=== PATIENT | male | born 1990 | race Caucasian/White ===

== ENCOUNTER 2017-06-05 00:08 | Emergency (ER) | payer SELFPAY ==
[2017-06-05 02:56] VITALS: BP 152/82
--- NOTE | 2017-06-05 04:53 | ER Document Report ---
ED Dizziness/Weakness - General Chief Complaint: Near Syncope Stated Complaint: CUT ON NECK Time Seen by Provider: 06/05/17 04:51 Mode of Arrival: Ambulatory Information source: Patient Notes: 27 yo normally healthy male got lightheaded with nausea while working at [employer], co worker said he looked pale. He was drunk the night before and accidentally cut his left neck (doesn't remember how) and superglued it together so he wants that checked too. No headache, dizziness, chest pain, shortness of breath, v/d, abdominal pain or fever. TRAVEL OUTSIDE OF THE [place] IN LAST 30 DAYS: No - Related Data Allergies/Adverse Reactions: No Known Allergies Allergy (Unverified 06/05/17 01:05) Past Medical History - General Information source: Patient - Social History Smoking Status: Current Every Day Smoker Frequency of alcohol use: Social - got drunk sat night Drug Abuse: Marijuana Occupation: [employer] Lives with: Alone Family History: Reviewed & Not Pertinent Patient has suicidal ideation: No Patient has homicidal ideation: No - Medical History Medical History: Negative Renal/ Medical History: Denies: Hx Peritoneal Dialysis Surgical Hx: Negative Review of Systems - Review of Systems Constitutional: No symptoms reported EENT: No symptoms reported Cardiovascular: No symptoms reported Respiratory: No symptoms reported Gastrointestinal: No symptoms reported Genitourinary: No symptoms reported Male Genitourinary: No symptoms reported Musculoskeletal: No symptoms reported Skin: See HPI Hematologic/Lymphatic: No symptoms reported Neurological/Psychological: See HPI Physical Exam - Vital signs Vitals: Temp Pulse Resp BP Pulse Ox 99.3 F 77 18 148/86 H 100 06/05/17 01:05 06/05/17 01:05 06/05/17 01:05 06/05/17 01:05 06/05/17 01:05 Interpretation: Normal - General General appearance: Appears well, Alert - HEENT Head: Normocephalic, Atraumatic Eyes: Normal Pupils: PERRL Neck: Supple Notes: 2 cm partial thickness cut base of left neck with super glue over most of it, no erythema - Respiratory Respiratory status: No respiratory distress Chest status: Nontender Breath sounds: Normal Chest palpation: Normal - Cardiovascular Rhythm: Regular Heart sounds: Normal auscultation Murmur: No - Abdominal Inspection: Normal Distension: No distension Bowel sounds: Normal Tenderness: Nontender Organomegaly: No organomegaly - Back Back: Normal, Nontender - Extremities General upper extremity: Normal inspection, Nontender, Normal color, Normal ROM , Normal temperature General lower extremity: Normal inspection, Nontender, Normal color, Normal ROM , Normal temperature, Normal weight bearing. No: Siva's sign - Neurological Neuro grossly intact: Yes Cognition: Normal Orientation: AAOx4 Bianca Coma Scale Eye Opening: Spontaneous [place] Coma Scale Verbal: Oriented [place] Coma Scale Motor: Obeys Commands [place] Coma Scale Total: 15 Speech: Normal Motor strength normal: LUE, RUE, LLE, RLE Sensory: Normal - Psychological Associated symptoms: Normal affect, Normal mood - Skin Skin Temperature: Warm Skin Moisture: Dry Skin Color: Normal Course - Vital Signs Vital signs: Temp Pulse Resp BP Pulse Ox 99.3 F 74 18 152/82 H 100 06/05/17 01:05 06/05/17 02:54 06/05/17 02:54 06/05/17 02:54 06/05/17 02:54 - EKG Interpretation by Ia EKG shows normal: Sinus rhythm Rate: Normal Rhythm: NSR - evaluated by dr velasquez Discharge - Discharge Clinical Impression: episode or presyncope, Cut of neck Condition: Good Disposition: HOME, SELF-CARE Instructions: Dizziness ([facility]), Near Syncopal Episode ([facility]), Non-Sutured Laceration ([facility]) Additional Instructions: bacitracin to neck wound drink plenty of fluids to er any concerns accucheck was normal at 81 copy of ekg given to you Please complete the patient satisfaction survey if you get one, and return it.. If you do not receive a survey, then you can go to the [facility] website, [email or web address] and place your comments about your very good care. Thank you very much. It was a pleasure being your medical provider today. Forms: Return to Work
--- NOTE | 2017-06-05 14:35 | EKG REPORT ---
SEVERITY:- NORMAL ECG - SINUS RHYTHM : Confirmed by: Sunni Leyva MD 05-Jun-2017 14:35:21
== END 2017-06-05 05:14 | disposition home or self-care (01) ==
LOC: ER 00:08
DX: R55 Syncope and collapse (principal); S11.81XA Laceration without foreign body of other specified part of neck, initial encounter; X58.XXXA Exposure to other specified factors, initial encounter; F17.200 Nicotine dependence, unspecified, uncomplicated
CPT/HCPCS: 82962; 93005; 93010; 99284

== ENCOUNTER 2019-10-22 21:04 | Emergency (ER) | payer SELFPAY ==
[2019-10-22 21:24] VITALS: BP 156/78
== END 2019-10-23 03:53 | disposition left against medical advice (07) ==
LOC: ER 21:04
DX: Z53.21 Procedure and treatment not carried out due to patient leaving prior to being seen by health care provider (principal)

== ENCOUNTER → 2019-11-27 | Outpatient (CLI) | payer MEDICAID ==
[2019-11-27 16:17] LABS: A TYPE INFLUENZA AG NEGATIVE (NEGATIVE); B INFLUENZA AG NEGATIVE (NEGATIVE)
[2019-11-28 12:52] VITALS: BP 112/76
--- NOTE | 2019-11-28 12:52 | ER RDC ASSESSMENT REPORT ---
Intake - In the Last 14 days Have you traveled outside [place]?: No Have you been in close contact with someone CONFIRMED: No Worked in Healthcare?: No - Symptoms Subjective Fever([place] feverish): Yes Chills: Yes Muscule Aches: No Runny Nose: Yes Sore Throat: Yes Cough (New or worsening chronic cough): Yes --How many day(s)?: 30 days Shortness of breath: No Nausea or Vomiting: Yes Headache: No Abdominal Pain: No Diarrhea(3 or more loose stools in last 24 hours): No - Do you have any of the following Chronic lung disease: Asthma or emphysema or COPD: No Cystic Fibrosis: No Diabetes: No High Blood Pressure: No Cardiovascular Disease: No Chronic Kidney Disease: No Chronic Liver Disease: No Chronic blood disorder like Sickle Cell Disease: No Weak immune system due to disease or medication: No Neurologic condition that limits movement: No Developmental delay - Moderate to Severe: No Recent (within past 2 weeks) or current : No Morbid Obesity (>100 pounds over ideal weight): No - Objective Temperature: 99.5 F Pulse Rate: 67 Respiratory Rate: 14 Blood Pressure: 112/76 O2 Sat by Pulse Oximetry: 98 Objective: Given above, testing performed: Rapid flu A/B, Rapid Strep- both negative If Testing Performed: Test Specimen Type Sent to Throat culture sent to [facility], COVID-19 sent to [facility] - General Chief Complaint: Cough Stated Complaint: Cough, low grade temp Mode of Arrival: Ambulatory Information source: Patient - [facility] Patient complains to provider of: cough Onset: Other - 1 month Onset/Duration: Gradual, Persistent Quality of pain: No pain Associated symptoms: Chills, Fever, Nausea, Rhinnorhea, Sore throat Exacerbated by: Denies Relieved by: Sitting, Remaining still, Other Similar symptoms previously: No Recently seen / treated by doctor: No - Related Data Allergies/Adverse Reactions: No Known Allergies Allergy (Unverified 06/05/17 01:05) Home Medications: mucinex, dayquil Past Medical History - Social History Smoking Status: Current Every Day Smoker Cigarette use (# per day): Yes - 5-15 Chew tobacco use (# tins/day): No Smoking Education Provided: Yes Frequency of alcohol use: Occasional Drug Abuse: None Occupation: plumbing Family History: Reviewed & Not Pertinent - Medical History Medical History: Negative - Past Medical History Cardiac Medical History: Reports: None Pulmonary Medical History: Reports: None Neurological Medical History: Reports: None Endocrine Medical History: Reports: None Renal/ Medical History: Reports: None. Denies: Hx Peritoneal Dialysis Malignancy Medical History: Reports None GI Medical History: Reports: None Musculoskeletal Medical History: Reports None Skin Medical History: Reports None Psychiatric Medical History: Reports: None Traumatic Medical History: Reports: None Infectious Medical History: Reports: None Past Surgical History: Reports: None Physical Exam - Vital signs Interpretation: Normal - General General appearance: Appears well, Alert In distress: None - HEENT Eyes: Normal Conjunctiva: Normal Pupils: PERRL Sinus: Normal Nasal: Normal, Clear rhinorrhea Mouth/Lips: Normal Mucous membranes: Normal Neck: Normal - Respiratory Respiratory status: No respiratory distress. No: Respiratory distress, Agonal respirations, Cyanosis, Depressed respirations, Labored, Pursed lip breathing, Retractions, Tachypnea, Tripod position, Other Chest status: Nontender. No: Tender, Chest mass, Ecchymosis, No pleuritic chest pain, Pain on movement, Pain with cough, Pain with deep breathing, Wounds, Accessory muscle use, Prolonged expirations, Splinting, Other Breath sounds: Normal, Nonproductive cough. No: Decreased air movement, Productive cough, Rales, Rhonchi, Stridor, Wheezing, Other Chest palpation: Normal. No: Flail segment, Man frothy sputum, Purulent sputum, Subcutaneous emphysema, Sucking chest wound, Tender, Ecchymosis, Wounds, Other - Cardiovascular Rhythm: Regular. No: Irregularly irregular, Extrasystoles, Tachycardia, Bradycardia, Other Heart sounds: Normal auscultation Murmur: No Friction rub: No Gallop: None auscultated Pulses: Normal: Radial Normal capillary refill: Yes - Abdominal Inspection: Normal Distension: No distension Bowel sounds: Normal Tenderness: Nontender - Neurological Neuro grossly intact: Yes Cognition: Normal Orientation: AAOx4 Bianca Coma Scale Eye Opening: Spontaneous [place] Coma Scale Verbal: Oriented [place] Coma Scale Motor: Obeys Commands [place] Coma Scale Total: 15 Speech: Normal - Psychological Associated symptoms: Normal affect, Normal mood - Skin Skin Temperature: Warm Skin Moisture: Dry Skin Color: Normal, Man Skin Turgor: Elastic Diagnostic Results Laboratory Results: 11/27/19 14:59 Throat Throat Culture - Final Group A Beta Streptococcus Normal Lauren Influenza A (Rapid) NEGATIVE (NEGATIVE) 11/27/19 15:06 Influenza B (Rapid) NEGATIVE (NEGATIVE) 11/27/19 15:06 Group A Strep Rapid NEGATIVE (NEGATIVE) 11/27/19 15:06 Patient Education/Counseling Counseling/Education: SRINATH educaation provided Guidance for worsening S/SX: Follow-up with PCP, ER with severe SOB/high temps RDC Discharge - Discharge Clinical Impression: Upper respiratory infection with cough and congestion Condition: Good Disposition: Home; Selfcare
== END ==
LOC: RDC 14:46
PROVIDERS: ATTEND Registered Nurse
DX: Z20.828 Contact with and (suspected) exposure to other viral communicable diseases (principal); J06.9 Acute upper respiratory infection, unspecified; R50.9 Fever, unspecified; J02.9 Acute pharyngitis, unspecified; R05 Cough; R11.2 Nausea with vomiting, unspecified; F17.210 Nicotine dependence, cigarettes, uncomplicated
CPT/HCPCS: 87070; 87077; 87635; 87804; 87880

== ENCOUNTER 2020-09-13 11:25 | Emergency (ER) | payer BC, MEDICAID ==
[2020-09-13 11:33] VITALS: BP 136/83
--- NOTE | 2020-09-13 12:26 | ER Document Report ---
ED Neck/Back Problem - General Chief Complaint: Back Pain Stated Complaint: LOW BACK PAIN Time Seen by Provider: 09/13/20 12:26 Primary Care Provider: NAPOLEON,UMA [Primary Care Provider] - Follow up as needed Notes: CHIEF COMPLAINT: Low back injury 3 days ago HPI: 22-year-old male with left lower back injury that occurred 3 days ago at work. 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 No incontinence of urine or bowel. No weakness numbness or tingling in the legs. No perineal numbness. States that he does this about once a year, normally has taken Flexeril and Toradol with good results ROS: See HPI - all other systems were reviewed and are otherwise negative Constitutional: no fever , No incontinence : no dysuria Integumentary: no rash Allergy: no hives Musculoskeletal: no extremity pain or swelling, positive back pain Neurological: no numbness/tingling, no weakness MEDICATIONS: I agree with the patient medications as charted by the RN. ALLERGIES: I agree with the allergies as charted by the RN. PAST MEDICAL HISTORY/PAST SURGICAL HISTORY: Reviewed and agree as charted by RN. SOCIAL HISTORY: Reviewed and agree as charted by RN. FAMILY HISTORY: No significant familial comorbid conditions directly related to patient complaint EXAM: Reviewed vital signs as charted by RN. CONSTITUTIONAL: Alert and oriented and responds appropriately to questions. Well-appearing; well-nourished HEAD: Normocephalic; atraumatic EYES: Conjunctivae clear, sclerae non-icteric ENT: normal nose; no rhinorrhea; moist mucous membranes NECK: Supple without meningismus CARD: symmetric distal pulses RESP: Normal chest excursion without splinting or tachypnea ABD/GI: Normal bowel sounds; non-distended; soft, non-tender, no rebound, no guarding; no palpable organomegaly or masses. BACK: The back appears normal and is non-tender to palpation directly over the lumbar spine. There is mild left lateral lumbar muscular tenderness on palpation, there is no CVA tenderness EXT: Normal ROM in all joints; non-tender to palpation; no cyanosis, no effusion s, no edema SKIN: Normal color for age and race; warm; dry; good turgor; no acute lesions noted NEURO: Moves all extremities equally; Motor and sensory function intact. Strength equal 5/5 bilateral lower extremities. Sensation intact and equal bilateral lower extremities. Straight leg raise is negative. No saddle anesthesia on exam. DTRs 2+ intact and equal bilateral lower extremities. PSYCH: The patient's mood and manner are appropriate. Grooming and personal hygiene are appropriate. MDM: 30-year-old male lateral lumbar muscular back pain. No direct tenderness over the spine to suggest fracture or need for imaging today. He is neurologically intact. Low suspicion for cauda equina. Patient has done well on Toradol and Flexeril in the past I will call these medications into the pharmacy for him and refer him to orthopedics for follow-up TRAVEL OUTSIDE OF THE [place] IN LAST 30 DAYS: No - Related Data Allergies/Adverse Reactions: No Known Allergies Allergy (Unverified 06/05/17 01:05) Past Medical History - Social History Smoking Status: Unknown if Ever Smoked Family History: Reviewed & Not Pertinent Renal/ Medical History: Denies: Hx Peritoneal Dialysis Physical Exam - Vital signs Vitals: Temp Pulse Resp BP Pulse Ox 98.5 F 69 18 136/83 H 100 09/13/20 11:31 09/13/20 11:31 09/13/20 11:31 09/13/20 11:31 09/13/20 11:31 Course - Vital Signs Vital signs: Temp Pulse Resp BP Pulse Ox 98.5 F 69 18 136/83 H 100 09/13/20 11:31 09/13/20 11:31 09/13/20 11:31 09/13/20 11:31 09/13/20 11:31 - Laboratory Results Critical Laboratory Results Reviewed: No Critical Results - Radiology Results Critical Radiology Results Reviewed: No Critical Results Discharge - Discharge Clinical Impression: Lower back injury Qualifiers: Encounter type: initial encounter Qualified Code(s): S39.92XA - Unspecified injury of lower back, initial encounter Condition: Stable Disposition: HOME, SELF-CARE Instructions: Muscle Strain ([facility]), Low Back Pain ([facility]) Additional Instructions: 1. Warm heat to the lower back twice daily 2. no heavy lifting for 2-3 days 3. medications as prescribed, no driving on muscle relaxers 4. follow up with orthopedics for further evaluation and treatment as needed for any continuing pain or problems, call for appt. 5. return to the ER for any onset of incontinence of urine, fever > 101 or wors ening condition Prescriptions: Ketorolac Tromethamine [Toradol 10 mg Tablet] 10 mg PO Q6HP PRN #20 tablet PRN Reason: Cyclobenzaprine HCl [Flexeril 10 mg Tablet] 10 mg PO TIDP PRN #15 tab PRN Reason: Referrals: JOHNNY TAVERA JR, DO [ACTIVE PROVISIONAL STAFF] - Follow up as needed
== END 2020-09-13 13:12 | disposition home or self-care (01) ==
LOC: ER 11:25
DX: S39.92XA Unspecified injury of lower back, initial encounter (principal); X50.9XXA Other and unspecified overexertion or strenuous movements or postures, initial encounter; Y99.0 Civilian activity done for income or pay
CPT/HCPCS: 99283

== ENCOUNTER 2020-09-26 09:33 | Emergency (ER) | payer BC, MEDICAID ==
[2020-09-26 09:38] VITALS: BP 129/85
[2020-09-26 11:34] LABS: APPEARANCE,URINE CLEAR; BILIRUBIN,URINE NEGATIVE (NEGATIVE); COLOR,URINE YELLOW; GLUCOSE, URINE NEGATIVE (NEGATIVE); KETONES,URINE NEGATIVE (NEGATIVE); LEUKOCYTE ESTERASE,URINE NEGATIVE (NEGATIVE); NITRITE,URINE NEGATIVE (NEGATIVE); PROTEIN,URINE NEGATIVE (NEGATIVE); URINE SPECIFIC GRAVITY 1.029; UROBILINOGEN,URINE NEGATIVE mg/dL (<2.0)
[2020-09-26 11:56] LABS: URINE AMPHETAMINES SCREEN NEGATIVE; URINE BARBITURATES SCREEN NEGATIVE; URINE BENZODIAZEPINES SCREEN NEGATIVE; URINE COCAINE SCREEN NEGATIVE; URINE MARIJUANA (THC) SCREEN UNCONFIRMED POSITIVE; URINE METHADONE SCREEN NEGATIVE; URINE PHENCYCLIDINE SCREEN NEGATIVE
--- NOTE | 2020-09-26 12:02 | RADIOLOGY REPORT (SQ) ---
EXAM DESCRIPTION: CT LUMBAR SPINE WITHOUT IMAGES COMPLETED DATE/TIME: 09/26/2020 11:33 am REASON FOR STUDY: left low back pain COMPARISON: None. TECHNIQUE: Axial images acquired through the lumbar spine without intravenous contrast. Images revi ewed with lung, soft tissue and bone windows. Reconstructed coronal and sagittal MPR images reviewed . All images stored on PACS. All CT scanners at this facility use dose modulation, iterative reconstruction, and/or weight based d osing when appropriate to reduce radiation dose to as low as reasonably achievable (ALARA). [facility]: Dose Right [facility]: CareDose [facility]: Dose Right [facility]: Teradose 4D [facility]: Teachable RADIATION DOSE: mGy. LIMITATIONS: None. FINDINGS: SEGMENTATION: Normal. No transitional anatomy. ALIGNMENT: Normal. VERTEBRAL BODIES: No fractures. No dislocation. No acute findings. DISCS: Probable posterior disc bulges at L3-L4 and L4-L5. Study limited by lack of intrathecal contr ast. PEDICLES, TRANSVERSE PROCESSES: No fractures. No dislocation. No acute findings. FACETS, POSTERIOR ELEMENTS: No fractures. No dislocation. No spinal stenosis. HARDWARE: None in the spine. VISUALIZED RIBS: No fractures. SOFT TISSUES: No significant or acute finding in adjacent soft tissues. OTHER: No other significant finding. IMPRESSION: PROBABLE POSTERIOR DISC BULGES AT L3-L4 AND L4-L 5. NO ACUTE BONY FINDINGS. TECHNICAL DOCUMENTATION: JOB ID: [id number] Quality ID # [id number]: Final reports with documentation of one or more dose reduction techniques (e.g., Au tomated exposure control, adjustment of the mA and/or kV according to patient size, use of iterative reconstruction technique) 2010 [employer]- All Rights Reserved Reading location - IP/workstation name: [email or web address]
--- NOTE | 2020-09-26 12:28 | ER Document Report ---
Entered by ANGEL MCCORMICK SCRIBE 09/26/20 1041 Acting as scribe for:ALLA MCCARTHY MD ED Neck/Back Problem - General Chief Complaint: Back Pain Stated Complaint: BACK PAIN Time Seen by Provider: 09/26/20 10:03 Mode of Arrival: Ambulatory Information source: Patient Notes: This 30 year old male patient with no significant past medical history presents to the ED today for evaluation after he woke up yesterday morning with severe lower back pain. Patient states that he couldn't get out of the bed and it hurts to walk. He states that he has been dealing with back pain since he was 20 and that he gets this pain about once a year. He reports that this is the second time in x2 weeks that he has felt this pain. He was seen here on 09/13 with the same complaint and was prescribed Flexeril and Toradol which he states he stopped taking x1 week ago because his pain resolved; however, he did take it yesterday and prior to arrival today without relief. Denies recent injury or trauma. Denies numbness/tingling, nausea, vomiting, or change in urinary or bowel habits. TRAVEL OUTSIDE OF THE [place] IN LAST 30 DAYS: No - Related Data Allergies/Adverse Reactions: No Known Allergies Allergy (Verified 09/13/20 13:04) Past Medical History - General Information source: Patient - Social History Smoking Status: Current Every Day Smoker Chew tobacco use (# tins/day): No Smoking Education Provided: No Frequency of alcohol use: Rare Drug Abuse: Marijuana Lives with: Family Family History: Reviewed & Not Pertinent - Medical History Medical History: Negative Surgical Hx: Negative Review of Systems - Review of Systems Constitutional: No symptoms reported EENT: No symptoms reported Cardiovascular: No symptoms reported Respiratory: No symptoms reported Gastrointestinal: See HPI. denies: Nausea, Vomiting Genitourinary: No symptoms reported Male Genitourinary: No symptoms reported Musculoskeletal: Back pain Skin: No symptoms reported Hematologic/Lymphatic: No symptoms reported Neurological/Psychological: See HPI. denies: Numbness, Tingling -: Yes All other systems reviewed and negative Physical Exam - Vital signs Vitals: Temp Pulse Resp BP Pulse Ox 97.8 F 84 16 129/85 H 100 09/26/20 09:37 09/26/20 09:37 09/26/20 09:37 09/26/20 09:37 09/26/20 09:37 - General General appearance: Appears well, Alert In distress: None - HEENT Head: Normocephalic, Atraumatic Eyes: Normal Extraocular movements intact: Yes Pupils: PERRL Neck: Normal, Supple - Respiratory Respiratory status: No respiratory distress Chest status: Nontender Breath sounds: Normal Chest palpation: Normal - Cardiovascular Rhythm: Regular Heart sounds: Normal auscultation Murmur: No - Abdominal Inspection: Normal Distension: No distension Bowel sounds: Normal Tenderness: Nontender - Abdomen soft Organomegaly: No organomegaly - Back Back: Tender - Tenderness to palpation of the left paraspinal musculature just above the iliac crest. No tenderness at the midline. No ecchymosis or rash noted in the area of tenderness.. No: CVA tenderness - Extremities General upper extremity: Normal inspection General lower extremity: Other - Straight leg raise is poor. Patient is unable to raise his right lower extremity greater than 30 degrees or his left lower extremity greater than 20 degrees. Motor and sensation intact. - Neurological Neuro grossly intact: Yes Orientation: AAOx4 [place] Coma Scale Eye Opening: Spontaneous Bianca Coma Scale Verbal: Oriented [place] Coma Scale Motor: Obeys Commands Bianca Coma Scale Total: 15 - Psychological Associated symptoms: Normal affect, Normal mood - Skin Skin Temperature: Warm Skin Moisture: Dry Skin Color: Normal Course - Re-evaluation Re-evalutation: 09/26/20 12:18 Patient resting lying flat in bed. - Vital Signs Vital signs: Temp Pulse Resp BP Pulse Ox 97.8 F 84 16 129/85 H 100 09/26/20 09:37 09/26/20 09:37 09/26/20 09:37 09/26/20 09:37 09/26/20 09:37 09/26/20 12:20 Vital signs stable - Laboratory Results Laboratory Results Interpreted: Labs- Entire Visit 09/26/20 09/26/20 10:55 10:55 Urine Color YELLOW Urine Appearance CLEAR Urine pH 5.0 Ur Specific [place] 1.029 Urine Protein NEGATIVE Urine Glucose (UA) NEGATIVE Urine Ketones NEGATIVE Urine Blood NEGATIVE Urine Nitrite NEGATIVE Urine Bilirubin NEGATIVE Urine Urobilinogen NEGATIVE Ur Leukocyte Esterase NEGATIVE Urine WBC (Auto) 1 Urine RBC (Auto) 0 Squamous Epi Cells Auto <1 Urine Mucus (Auto) FEW Urine Ascorbic Acid NEGATIVE Urine Opiates Screen NEGATIVE Urine Methadone Screen NEGATIVE Ur Barbiturates Screen NEGATIVE Ur Phencyclidine Scrn NEGATIVE Ur Amphetamines Screen NEGATIVE U Benzodiazepines Scrn NEGATIVE Urine Cocaine Screen NEGATIVE U Marijuana (THC) Screen UNCONFIRMED POSITIVE 09/26/20 12:20 Laboratories within normal range except patient is positive for marijuana. Critical Laboratory Results Reviewed: No Critical Results - Radiology Results Radiology Results Interpreted: 09/26/20 12:[address] 09/26/20 10:47 IMPRESSION: PROBABLE POSTERIOR DISC BULGES AT L3-L4 AND L4-L 5. NO ACUTE BONY FINDINGS. 09/26/20 12:20 CT scan of lumbar spine shows disc bulging at L3-4 and L4-5. Otherwise no acute bony abnormalities. Critical Radiology Results Reviewed: No Critical Results Discharge - Discharge Clinical Impression: Lumbar degenerative disc disease, Low back pain Condition: Stable Disposition: HOME, SELF-CARE Instructions: Low Back Pain ([facility]), Oral Narcotic Medication ([facility]) Additional Instructions: Low Back Pain Three out of every four people will have an episode of disabling back pain during their lifetime. Most commonly the pain is due to straining of the muscles and ligaments in the low back. Usual treatment includes: (1) Rest on a firm surface. Avoid lying on your stomach. (2) Ice pack the painful area. After a few days, gentle heat may be used intermittently to relax the area, or ice packs can be continued. (3) Medication may be needed -- muscle relaxers and antiinflammatory medicines are commonly used. (4) As the back improves, exercises are prescribed to strengthen the back and abdominal muscles. Your doctor will advise you on the proper care for your back at each stage in your recovery. You may be better in a few days -- or healing may take se veral weeks. If new symptoms of a "herniated disc" (radiation of pain, numbness, or tingling down the back of the leg or weakness in the leg) occur, you should be re-examined. Further testing may be necessary. Prescriptions: Cyclobenzaprine HCl [Flexeril 10 mg Tablet] 10 mg PO QHS PRN #15 tablet PRN Reason: Methylprednisolone [Medrol Dosepack (4 mg/Tab) 21 Tab/Dosepak] 4 mg PO ASDIR PRN #21 tab.ds.pk PRN Reason: Naproxen [Naprosyn] 500 mg PO BID PRN #30 tablet PRN Reason: For Pain Scale 4-5 Hydrocodone/Acetaminophen [[place] 10-325 mg Tablet] 1 tab PO TID PRN #10 tablet PRN Reason: prn severe pain Forms: Return to Work Referrals: JOHNNY TAVERA JR, DO [ACTIVE PROVISIONAL STAFF] - Follow up as needed I personally performed the services described in the documentation, reviewed and edited the documentation which was dictated to the scribe in my presence, and it accurately records my words and actions.
== END 2020-09-26 12:43 | disposition home or self-care (01) ==
LOC: ER 09:33
DX: M51.36 Other intervertebral disc degeneration, lumbar region (principal); M54.5 Low back pain; M54.9 Dorsalgia, unspecified; F17.200 Nicotine dependence, unspecified, uncomplicated
CPT/HCPCS: 72131; 80307; 81001; 99284